=== PATIENT | male | born 1940 | race Caucasian/White ===

== ENCOUNTER 2017-12-08 12:39 | Inpatient (IN) | payer BC ==
[~2017-12-08] VITALS: Ht 182.9 cm; Wt 102.1 kg
[2017-12-08 12:44] VITALS: BP 135/83
[2017-12-08 13:12] LABS: ABSOLUTE EOSINOPHILS 0.2 thou/uL (0.0-0.7); ABSOLUTE LYMPHOCYTES 1.5 thou/uL (0.8-5.3); ABSOLUTE MONOCYTES 0.9 thou/uL (0.0-1.2); ABSOLUTE NEUTROPHILS 8.3 thou/uL (1.6-8.1); BASOPHILS 0.3 %; EOSINOPHILS 1.9 %; HEMATOCRIT 41.4 % (42.0-52.0); HEMOGLOBIN 13.7 gm/dL (14.0-18.0); LYMPHOCYTES 13.6 %; MCH 28.4 pg (26.0-34.0); MCHC 33.1 g/dL (28.0-37.0); MCV 85.9 fL (80.0-100.0); MPV 7.7 fl. (7.2-11.1); NUCLEATED RBCS 0 /100WBC; PLATELET COUNT* 245 thou/uL (150-400); POLYS 76.2 %; RBC 4.82 mil/uL (4.50-6.00); RDW-CV 14.8 % (10.5-14.5); WBC 10.9 thou/uL (4.0-11.0)
[2017-12-08 13:24] LABS: ANION GAP 6 mmol/L (7-16); BUN 15 mg/dL (7-18); CALCIUM 9.7 mg/dL (8.5-10.1); CHLORIDE 104 mmol/L (98-107); CO2 26 mmol/L (21-32); GLUCOSE 126 mg/dL (70-99); POTASSIUM 4.3 mmol/L (3.5-5.1); SODIUM 136 mmol/L (136-145)
[2017-12-08 13:31] LABS: ALBUMIN 3.5 g/dL (3.4-5.0); ALKALINE PHOSPHATASE 57 U/L (46-116); SGOT 39 U/L (15-37); SGPT 92 U/L (30-65); TOTAL BILIRUBIN 0.5 mg/dL (<0.1-1.0); TOTAL PROTEIN 7.3 g/dL (6.4-8.2); TROPONIN-I LEVEL <0.06 ng/mL (<0.06)
[2017-12-08 15:00] VITALS: BP 133/82
[2017-12-08 16:30] VITALS: BP 110/82
[2017-12-08 16:57] VITALS: BP 130/84
[2017-12-08 21:00] VITALS: BP 103/57; BP 109/59
[2017-12-09] VITALS (7 sets, daily range): BP systolic 94–148; BP diastolic 48–70
--- NOTE | 2017-12-09 06:05 | NUR ---
UP AT DA IN ROOM. ON O2 AT 2L/NC TO KEEP O2 SATS IN 90'S. LUNG SOUNDS DIMINISHED WITH CRACKLES IN BASES. NO C/O PAIN. CONTINUES TO RECEIVE BREATHING TREATMENTS. CALL LIGHT WITHIN REACH.
--- NOTE | 2017-12-09 18:05 | NUR ---
ALERT AND ORIENTED X4. UP AD DA IN ROOM. IV IS PATENT AND SALINE LOCKED. DENIES NEED FOR PAIN MEDICATION. IV ANTIBIOTICS THIS AM. VSS ON ROOM AIR. HOURLY ROUNDS HAVE BEEN MAINTAINED THROUGHOUT SHIFT. CALL LIGHT IS WITHIN REACH. NURSING WILL CONTINUE TO MONITOR.
[2017-12-10 04:37] LABS: ABSOLUTE EOSINOPHILS 0.1 thou/uL (0.0-0.7); ABSOLUTE LYMPHOCYTES 1.8 thou/uL (0.8-5.3); ABSOLUTE NEUTROPHILS 11.7 thou/uL (1.6-8.1); BASOPHILS 0.2 %; EOSINOPHILS 0.7 %; HEMATOCRIT 39.7 % (42.0-52.0); HEMOGLOBIN 12.8 gm/dL (14.0-18.0); LYMPHOCYTES 12.5 %; MCH 28.1 pg (26.0-34.0); MCHC 32.3 g/dL (28.0-37.0); MONOCYTES 6.9 %; NUCLEATED RBCS 0 /100WBC; PLATELET COUNT* 235 thou/uL (150-400); POLYS 79.7 %; RBC 4.56 mil/uL (4.50-6.00); RDW-CV 14.7 % (10.5-14.5); WBC 14.7 thou/uL (4.0-11.0)
[2017-12-10 04:52] LABS: CALCIUM 9.2 mg/dL (8.5-10.1); CREATININE 1.1 mg/dL (0.6-1.3); POTASSIUM 4.1 mmol/L (3.5-5.1)
--- NOTE | 2017-12-10 05:01 | NUR ---
PT SLEPT AT INTERVALS DURING THE NIGHT, ROOM AIR, UP AD DA, PLEASANT, IV SALINE LOCKED, BREATHING TREATMENTS BY RT, CALL LIGHT IN REACH, WILL CONTINUE TO MONITOR
[2017-12-10 07:50] VITALS: BP 114/75
[2017-12-10] MEDS ORDERED: AZITHROMYCIN 2250 MG PO (14:58)
[2017-12-10] MEDS ORDERED: CEFDINIR300 MG PO (14:59)
[2017-12-10 15:00] VITALS: BP 114/75
[2017-12-10] MEDS ORDERED: SINGULAIR 10 MG10 M1 PO (15:09)
--- NOTE | 2017-12-10 15:47 | NUR ---
PATIENT A&OX4, ROOM AIR, UP AD DA, STEADY GAIT. NO C/O PIAN/N/V. REVIEWED DISCHARGE PAPERWORK WITH PATIENT WHILE SPOUSE AT BEDSIDE. ALL QUESTIONS AND CONCERNS ANSWERED. PATIENT LEFT UNIT AT 1545 VIA W/C WITH NURSING STAFF AND SPOUSE. APPROPRAITE AND COOPORATIVE WITH CARE.
--- NOTE | 2017-12-11 11:03 | EKG ---
[place] [address] ELECTROCARDIOGRAM REPORT Name: DANNA BUCKNER Room: [address] IN M.R.#: [id number] Admission: 12/08/17 Attend Phys: Jaydon Morales Discharge: 12/10/17 Date of : 38 Report #: [id number] THIS REPORT FOR: //name// 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
--- NOTE | 2017-12-11 11:04 | EKG ---
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
== END 2017-12-10 15:45 | disposition home or self-care (01) | DRG 194 ==
LOC: M.ERS 12:39 → M.ORTHSURG 13:54 → M.TBA-ER 13:54 → M.ORTHSURG 16:55
PROVIDERS: Physician Assistant; ADMIT Internal Medicine
DX: J18.9 Pneumonia, unspecified organism (principal); J90 Pleural effusion, not elsewhere classified; Z90.49 Acquired absence of other specified parts of digestive tract; Z79.2 Long term (current) use of antibiotics